=== PATIENT | female | born 1995 | race Caucasian/White ===

== ENCOUNTER 2016-12-16 20:11 | Emergency (ER) | payer OTHER ==
[2016-12-16 20:21] VITALS: BP 100/45
[2016-12-16] MEDS ORDERED: Acetaminophen 500 MG Tab PO ONE (20:24)
[2016-12-16] MEDS ORDERED: Ondansetron 4 MG/2 ML SDV IV ONE (20:27)
[2016-12-16] MEDS ORDERED: Sodium Chloride 0.9% 1,000 ML IV ONE (20:27)
[2016-12-16] MEDS ORDERED: Phenylephrine 0.5% Nasal Spray 15 ML Bot NASRT ONE (20:43)
--- NOTE | 2016-12-16 20:47 | EDM.PDOC ---
ED HPI GENERAL MEDICAL PROBLEM - General Chief Complaint: Fever Stated Complaint: 103 DEG FEVER Time Seen by Provider: 12/16/16 20:35 Source of Information: Reports: Patient History Limitations: Reports: No limitations - History of Present Illness INITIAL COMMENTS - FREE TEXT/NARRATIVE: This 21 yo female patient reports to the ED with a 2 day history of a fever ( 103 at home) and intermittent bloody noses. The patient reports she has been taking Dayquill with no symptom relief. The patient has not been seen in the clinic at this time. Onset: sudden Duration: Day(s): (2), Constant (fever), Intermittent (bloody nose) Location: Reports: generalized Quality: Reports: Ache, Dull Severity: moderate Improves with: Reports: None Worsens with: Reports: None Associated Symptoms: Reports: other (bloody nose) Headache Pain Score (Numeric/FACES): 10 - Related Data Allergies Allergy/AdvReac Type Severity Reaction Status Date / Time No Known Allergies Allergy Verified 12/16/16 20:19 Home Meds: Home Meds . 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 Musculoskeletal History: Reports: None Neurological History: Reports: None Psychiatric History: Reports: None Endocrine/Metabolic History: Reports: None Hematologic History: Reports: None Immunologic History: Reports: None Oncologic (Cancer) History: Reports: None Dermatologic History: Reports: None - Past Surgical History HEENT Surgical History: Reports: Tonsillectomy Social & Family History - Tobacco Use Smoking Status *Q: Heavy Tobacco Smoker Years of Tobacco use: 5 Packs/Tins Daily: 1 - Caffeine Use Caffeine Use: Reports: Coffee, Energy drinks, Soda, Tea - Recreational Drug Use Recreational Drug Use: No ED ROS GENERAL - Review of Systems Review Of Systems: See Below Constitutional: Reports: fever, chills HEENT: Reports: Nosebleed (intermittent for a couple of weeks) Respiratory: Reports: no symptoms Cardiovascular: Reports: No symptoms Endocrine: Reports: no symptoms GI/Abdominal: Reports: Nausea (intermittent), Vomiting (2 episodes) : Reports: no symptoms Musculoskeletal: Reports: no symptoms Skin: Reports: no symptoms Neurological: Reports: no symptoms Psychiatric: Reports: No symptoms Hematologic/Lymphatic: Reports: no symptoms Immunologic: Reports: no symptoms ED EXAM, GENERAL - Physical Exam Exam: See Below Exam Limited By: No limitations General Appearance: alert, anxious, moderate distress Eye Exam: bilateral eye: EOMI, normal inspection, PERRL Ears: normal external exam, normal canal, hearing grossly normal, normal TMs Nose: normal mucosa, other (bleeding from right nare) Throat/Mouth: Normal inspection, Normal lips, Normal teeth, Normal gums, Normal oropharynx, Normal voice, No airway compromise Head: atraumatic, normocephalic Neck: normal inspection, supple, non-tender, full range of motion Respiratory/Chest: no respiratory distress, lungs clear, normal breath sounds, no accessory muscle use, chest non-tender Cardiovascular: normal peripheral pulses, regular rate, rhythm, no edema, no gallop, no JVD, no murmur, no rub GI/Abdominal: normal bowel sounds, soft, non tender, no organomegaly, no distention, no abnormal bruit, no mass (Female) Exam: Deferred Rectal (Female) Exam: Deferred Back Exam: normal inspection, full range of motion, NT Extremities: normal inspection, normal range of motion, non-tender, normal capillary refill, no pedal edema Neurological: alert, oriented, CN II-XII intact, normal cognition, normal gait, normal reflexes, no motor/sensory deficits Psychiatric: normal affect, normal mood Skin Exam: Diaphoretic, Increased warmth Lymphatic: no adenopathy Course - Vital Signs Last Recorded V/S: Last Vital Signs Temp 39.7 C H 12/16/16 20:37 Pulse 141 H 12/16/16 20:20 Resp 22 H 12/16/16 20:20 BP 100/45 L 12/16/16 20:20 Pulse Ox 99 12/16/16 20:20 - Orders/Labs/Meds Orders: Active Orders 24 hr Category Date Time Status COMPREHENSIVE METABOLIC PN,CMP [CHEM] Urgent Lab 12/16/16 21:05 Received CULTURE STREP A CONFIRMATION [] Stat Lab 12/16/16 20:13 Results STREP SCRN A RAPID W CULT CONF [] Stat Lab 12/16/16 20:13 Results Sodium Chloride 0.9% [Normal Saline] 1,000 ml Med 12/16/16 20:27 Active IV .BOLUS Medication Orders Sodium Chloride (Normal Saline) 1,000 mls @ 999 mls/hr IV .BOLUS ONE Stop: 12/16/16 21:27 Last Admin: 12/16/16 20:37 Dose: 999 mls/hr Labs: Laboratory Tests 12/16/16 12/16/16 12/16/16 Range/Units 20:53 20:53 21:05 WBC 11.7 H (5.0-10.0) 10^3/uL RBC 3.68 L (4.2-5.4) 10^6/uL Hgb 11.2 L (12.0-16.0) g/dL Hct 33.7 L (37.0-47.0) % MCV 91.6 (80-100) fL MCH 30.4 (27.0-34.0) pg MCHC 33.2 (33.0-35.0) g/dL Plt Count 190 (150-450) 10^3/uL Neut % (Auto) 81.6 H (42.2-75.2) % Lymph % (Auto) 8.7 L (20.5-50.1) % [place] % (Auto) 9.6 H (2-8) % Eos % (Auto) 0.0 L (1.0-3.0) % Baso % (Auto) 0.1 (0.0-1.0) % Urine Color Yellow (YELLOW) Urine Appearance Turbid (CLEAR) Urine pH 6.0 (5.0-9.0) Ur Specific [place] 1.015 (1.005-1.030) Urine Protein 100 H (NEGATIVE) Urine Glucose (UA) Negative (NEGATIVE) Urine Ketones Negative (NEGATIVE) Urine Occult Blood Moderate H (NEGATIVE) Urine Nitrite Positive H (NEGATIVE) Urine Bilirubin Negative (NEGATIVE) Urine Urobilinogen 1.0 (0.2-1.0) mg/dL Ur Leukocyte Esterase Moderate H (NEGATIVE) Urine RBC 10-20 H /HPF Urine WBC >100 H (0-5/HPF) /HPF Ur Epithelial Cells Few /HPF Urine Bacteria Many H (0-FEW/HPF) /HPF Urine Opiates Screen Positive H (NEGATIVE) Ur Oxycodone Screen Negative (NEGATIVE) Urine Methadone Screen Negative (NEGATIVE) Ur Barbiturates Screen Negative (NEGATIVE) U Tricyclic Antidepress Negative (NEGATIVE) Ur Phencyclidine Scrn Negative (NEGATIVE) Ur Amphetamine Screen Negative (NEGATIVE) U Methamphetamines Scrn Negative (NEGATIVE) Urine MDMA Screen Negative (NEGATIVE) U Benzodiazepines Scrn Negative (NEGATIVE) Urine Cocaine Screen Negative (NEGATIVE) U Marijuana (THC) Screen Negative (NEGATIVE) Meds: Medications Generic Name Dose Route Start Last Admin Trade Name Freq PRN Reason Stop Dose Admin Sodium Chloride 1,000 mls @ 999 mls/hr 12/16/16 20:27 12/16/16 20:37 Normal Saline IV 12/16/16 21:27 999 mls/hr .BOLUS ONE Administration Discontinued Medications Generic Name Dose Route Start Last Admin Trade Name Freq PRN Reason Stop Dose Admin Acetaminophen 1,000 mg 12/16/16 20:24 12/16/16 20:37 Tylenol Extra Strength PO 12/16/16 20:25 1,000 mg ONETIME ONE Administration Ciprofloxacin 500 mg 12/16/16 21:22 Ciprofloxacin Hcl PO 12/16/16 21:23 ONETIME ONE Ondansetron HCl 4 mg 12/16/16 20:27 12/16/16 20:37 Zofran IV 12/16/16 20:28 4 mg ONETIME ONE Administration Phenylephrine HCl 1 ml 12/16/16 20:43 Heri-Synephrine 0.5% Regular Nasal [place] NASRT 12/16/16 20:44 ONETIME ONE Departure - Departure Time of Disposition: 21:23 Disposition: Home, Self-Care 01 Condition: fair Clinical Impression: UTI (urinary tract infection) Qualifiers: Urinary tract infection type: site unspecified Hematuria presence: with hematuria Qualified Code(s): N39.0 - Urinary tract infection, site not specified ; R31.9 - Hematuria, unspecified Instructions: Urinary Tract Infection, Adult Forms: ED Department Discharge Care Plan Goals: The patient was advised of the examination and lab results during the visit. The patient was given an oral dose of Cipro (500 mg) while in the ED. The patient was discharged with a script for Cipro (500 mg) #10 to take 1 by mouth 2 times per day for 5 days. If the patient has any additional symptoms or concerns, the patient should follow-up with her primary care facility or return to the emergency department. - My Orders Last 24 Hours: My Active Orders 12/16/16 20:13 CULTURE STREP A CONFIRMATION [RM] Stat STREP SCRN A RAPID W CULT CONF [RM] Stat 12/16/16 20:27 Sodium Chloride 0.9% [Normal Saline] 1,000 ml IV .BOLUS 12/16/16 21:05 COMPREHENSIVE METABOLIC PN,CMP [CHEM] Urgent - Assessment/Plan Last 24 Hours: My Active Orders 12/16/16 20:13 CULTURE STREP A CONFIRMATION [RM] Stat STREP SCRN A RAPID W CULT CONF [RM] Stat 12/16/16 20:27 Sodium Chloride 0.9% [Normal Saline] 1,000 ml IV .BOLUS 12/16/16 21:05 COMPREHENSIVE METABOLIC PN,CMP [CHEM] Urgent
[2016-12-16] MEDS ORDERED: Ciprofloxacin 500 MG Tab PO ONE (21:22)
[2016-12-16 21:35] LABS: CHLORIDE,CL 99 mmol/L (101-111); SODIUM,NA 129 mmol/L (135-145)
== END 2016-12-16 21:38 | disposition home or self-care (01) ==
LOC: DL.ED 20:11
DX: N39.0 Urinary tract infection, site not specified (principal); R31.9 Hematuria, unspecified; F17.210 Nicotine dependence, cigarettes, uncomplicated
CPT/HCPCS: 36415; 80053; 80305; 81001; 85025; 87081; 87086; 87430; 87804; 96361; 96374; 99283; A9270; J2405; J7030; 87088; 87186

== ENCOUNTER 2016-12-18 10:55 | Emergency (ER) | payer MEDICAID, OTHER ==
[2016-12-18 11:13] VITALS: BP 108/60
--- NOTE | 2016-12-18 11:16 | EDM.PDOC ---
ED HPI GENERAL MEDICAL PROBLEM - General Chief Complaint: Fever Stated Complaint: [id number] STILL RUNNING A FEVER Time Seen by Provider: 12/18/16 11:15 Source of Information: Reports: Patient, Old records, RN, RN notes reviewed History Limitations: Reports: No limitations - History of Present Illness INITIAL COMMENTS - FREE TEXT/NARRATIVE: Pt seen here 12/16/16 with fever and UTI. Has been taking Cipro 500mg BID, but she is not feeling better and still having some fevers. Admits to nausea and flank pain. Denies vomiting, sore throat, or abdominal pain. 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 Musculoskeletal History: Reports: None Neurological History: Reports: None Psychiatric History: Reports: None Endocrine/Metabolic History: Reports: None Hematologic History: Reports: None Immunologic History: Reports: None Oncologic (Cancer) History: Reports: None Dermatologic History: Reports: None - Past Surgical History HEENT Surgical History: Reports: Tonsillectomy Social & Family History - Family History Family Medical History: Noncontributory - Tobacco Use Smoking Status *Q: Heavy Tobacco Smoker Years of Tobacco use: 5 Packs/Tins Daily: 1 - Caffeine Use Caffeine Use: Reports: Coffee, Energy drinks, Soda, Tea - Recreational Drug Use Recreational Drug Use: No - Living Situation & Occupation Living situation: Reports: with family ED ROS GENERAL - Review of Systems Review Of Systems: ROS reveals no pertinent complaints other than HPI. ED EXAM, GENERAL - Physical Exam Exam: See Below Exam Limited By: No limitations General Appearance: alert, WD/WN, no apparent distress Eye Exam: bilateral eye: normal inspection Nose: normal inspection Throat/Mouth: Normal lips, Normal oropharynx, Normal voice, No airway compromise Head: atraumatic, normocephalic Neck: normal inspection, supple, non-tender, full range of motion. No: lymphadenopathy (L), lymphadenopathy (R) Respiratory/Chest: no respiratory distress, lungs clear, normal breath sounds, no accessory muscle use, chest non-tender Cardiovascular: regular rate, rhythm GI/Abdominal: normal bowel sounds, soft, no organomegaly, no distention, tender (suprapubic region) Back Exam: full range of motion, CVA tenderness (L), CVA tenderness (R), other ( mild B/L CVA tenderness) Extremities: normal inspection Neurological: alert, oriented, CN II-XII intact, normal cognition, normal gait, no motor/sensory deficits Psychiatric: normal affect, normal mood Skin Exam: Warm, Dry, Intact, Normal color, No rash Course - Vital Signs Last Recorded V/S: Last Vital Signs Temp 36.3 C 12/18/16 11:07 Pulse 99 12/18/16 11:07 Resp 16 12/18/16 11:07 BP 108/60 12/18/16 11:07 Pulse Ox 100 12/18/16 11:07 - Orders/Labs/Meds Orders: Active Orders 24 hr Category Date Time Status CHLAMYDIA TRACHOMATIS/GC AMPLF Routine Lab 12/18/16 11:20 Received CULTURE URINE [RM] Stat Lab 12/18/16 11:20 Received Labs: Laboratory Tests 12/18/16 12/18/16 12/18/16 Range/Units 11:20 11:20 11:20 WBC (5.0-10.0) 10^3/uL RBC (4.2-5.4) 10^6/uL Hgb (12.0-16.0) g/dL Hct (37.0-47.0) % MCV (80-100) fL MCH (27.0-34.0) pg MCHC (33.0-35.0) g/dL Plt Count (150-450) 10^3/uL Neut % (Auto) (42.2-75.2) % Lymph % (Auto) (20.5-50.1) % [place] % (Auto) (2-8) % Eos % (Auto) (1.0-3.0) % Baso % (Auto) (0.0-1.0) % Urine Color Yellow (YELLOW) Urine Appearance Slightly cloudy (CLEAR) Urine pH 7.5 (5.0-9.0) Ur Specific [place] 1.020 (1.005-1.030) Urine Protein >=300 H (NEGATIVE) Urine Glucose (UA) 100 H (NEGATIVE) Urine Ketones Negative (NEGATIVE) Urine Occult Blood Trace-intact H (NEGATIVE) Urine Nitrite Negative (NEGATIVE) Urine Bilirubin Negative (NEGATIVE) Urine Urobilinogen 4.0 H (0.2-1.0) mg/dL Ur Leukocyte Esterase Small H (NEGATIVE) Urine RBC 5-10 H /HPF Urine WBC 20-30 H (0-5/HPF) /HPF Ur Epithelial Cells Few /HPF Urine Bacteria Few (0-FEW/HPF) /HPF Urine HCG, Qual Negative Urine Opiates Screen Negative (NEGATIVE) Ur Oxycodone Screen Negative (NEGATIVE) Urine Methadone Screen Negative (NEGATIVE) Ur Barbiturates Screen Negative (NEGATIVE) U Tricyclic Antidepress Negative (NEGATIVE) Ur Phencyclidine Scrn Negative (NEGATIVE) Ur Amphetamine Screen Positive H (NEGATIVE) U Methamphetamines Scrn Negative (NEGATIVE) Urine MDMA Screen Negative (NEGATIVE) U Benzodiazepines Scrn Negative (NEGATIVE) Urine Cocaine Screen Negative (NEGATIVE) U Marijuana (THC) Screen Negative (NEGATIVE) 12/18/16 Range/Units 11:28 WBC 13.9 H (5.0-10.0) 10^3/uL RBC 3.94 L (4.2-5.4) 10^6/uL Hgb 12.0 (12.0-16.0) g/dL Hct 35.9 L (37.0-47.0) % MCV 91.1 (80-100) fL MCH 30.5 (27.0-34.0) pg MCHC 33.4 (33.0-35.0) g/dL Plt Count 199 (150-450) 10^3/uL Neut % (Auto) 76.4 H (42.2-75.2) % Lymph % (Auto) 7.9 L (20.5-50.1) % [place] % (Auto) 15.6 H (2-8) % Eos % (Auto) 0.1 L (1.0-3.0) % Baso % (Auto) 0.0 (0.0-1.0) % Urine Color (YELLOW) Urine Appearance (CLEAR) Urine pH (5.0-9.0) Ur Specific [place] (1.005-1.030) Urine Protein (NEGATIVE) Urine Glucose (UA) (NEGATIVE) Urine Ketones (NEGATIVE) Urine Occult Blood (NEGATIVE) Urine Nitrite (NEGATIVE) Urine Bilirubin (NEGATIVE) Urine Urobilinogen (0.2-1.0) mg/dL Ur Leukocyte Esterase (NEGATIVE) Urine RBC /HPF Urine WBC (0-5/HPF) /HPF Ur Epithelial Cells /HPF Urine Bacteria (0-FEW/HPF) /HPF Urine HCG, Qual Urine Opiates Screen (NEGATIVE) Ur Oxycodone Screen (NEGATIVE) Urine Methadone Screen (NEGATIVE) Ur Barbiturates Screen (NEGATIVE) U Tricyclic Antidepress (NEGATIVE) Ur Phencyclidine Scrn (NEGATIVE) Ur Amphetamine Screen (NEGATIVE) U Methamphetamines Scrn (NEGATIVE) Urine MDMA Screen (NEGATIVE) U Benzodiazepines Scrn (NEGATIVE) Urine Cocaine Screen (NEGATIVE) U Marijuana (THC) Screen (NEGATIVE) Meds: Medications Discontinued Medications Generic Name Dose Route Start Last Admin Trade Name Herman PRN Reason Stop Dose Admin Azithromycin 1,000 mg 12/18/16 11:52 Zithromax PO 12/18/16 11:53 ONETIME ONE Ceftriaxone Sodium 1 gm/ 0 gm 12/18/16 11:51 Lidocaine HCl 2.1 ml IM 12/18/16 11:52 ONETIME ONE Departure - Departure Time of Disposition: 11:52 Disposition: Home, Self-Care 01 Condition: fair Clinical Impression: Pyelonephritis Instructions: Fever, Adult, [id number], Pyelonephritis, Adult, [id number] Forms: ED Department Discharge Additional Instructions: Rx: Cephalexin 500mg Drink lots of water until you are improved. Follow up in clinic if not completely improved in 3 days. - My Orders Last 24 Hours: My Active Orders 12/18/16 11:20 CHLAMYDIA TRACHOMATIS/GC AMPLF Routine CULTURE URINE [RM] Stat - Assessment/Plan Last 24 Hours: My Active Orders 12/18/16 11:20 CHLAMYDIA TRACHOMATIS/GC AMPLF Routine CULTURE URINE [RM] Stat
[2016-12-18] MEDS ORDERED: cefTRIAXone 1 GM, Lidocaine 1% 2.1 ML IM ONE ×2 (11:51)
[2016-12-18] MEDS ORDERED: Azithromycin 250 MG Tab PO ONE (11:52)
== END 2016-12-18 12:15 | disposition home or self-care (01) ==
LOC: DL.ED 10:55
DX: N12 Tubulo-interstitial nephritis, not specified as acute or chronic (principal); F17.200 Nicotine dependence, unspecified, uncomplicated
CPT/HCPCS: 36415; 80305; 81001; 81025; 85025; 87086; 87491; 87591; 96372; 99284; A9270; J0696